=== PATIENT | male | born 1990 | race Caucasian/White ===

== ENCOUNTER 2018-01-08 03:36 | Emergency (ER) | payer OTHER ==
[2018-01-08 03:42] VITALS: BP 128/74; PULSE 68; RESP 16; TEMP 98.1
[2018-01-08] MEDS ORDERED: diphenhydrAMINE 50 MG/ML 1 ML VIAL IM STA (03:51)
[2018-01-08] MEDS ORDERED: FAMOTIDINE 20 MG TAB PO STA (03:52)
[2018-01-08] MEDS ORDERED: methylPREDNISolone SOD SUCCI 125 MG/2 ML VIAL IM ONE (03:52)
--- NOTE | 2018-01-08 03:56 | ED ---
General Adult HPI - General Chief complaint: Allergic Reaction Stated complaint: allergic rxn Time Seen by Provider: 01/08/18 03:40 Source: patient, RN notes reviewed Mode of arrival: ambulatory Limitations: no limitations - History of Present Illness Initial comments: This a 27-year-old male who presents emergency Department thinking that he has an ALLERGIC reaction. Patient states she woke up with itching around his neck arms and hands. Patient states he also has some swelling to his upper lip. Patient took Benadryl at home decreased the itching but he continues to have some redness. Patient denies any difficulty breathing or difficulty swallowing. Patient denies any new foods or drink. Patient denies any new soaps or detergents. Patient states she does smoke marijuana daily for his back pain. - Related Data Previous Rx's Medication Instructions Recorded predniSONE 40 mg PO DAILY #8 tab 01/08/18 Allergies Allergy/AdvReac Type Severity Reaction Status Date / Time No Known Allergies Allergy Verified 01/08/18 03:42 Review of Systems ROS Statement: Those systems with pertinent positive or pertinent negative responses have been documented in the HPI. ROS Other: All systems not noted in ROS Statement are negative. Past Medical History Past Medical History: No Reported History History of Any Multi-Drug Resistant Organisms: None Reported Past Surgical History: No Surgical Hx Reported Past Psychological History: Anxiety Smoking Status: Never smoker Past Alcohol Use History: Occasional Past Drug Use History: Marijuana General Exam - General Exam Comments Initial Comments: GENERAL: Patient is well-developed and well-nourished. Patient is nontoxic and well- hydrated and is in mild distress. EYES: The sclera were anicteric and conjunctiva were pink and moist. Extraocular movements were intact and pupils were equal round and reactive to light. Eyelids were unremarkable. PULMONARY: Unlabored respirations. Good breath sounds bilaterally. No audible rales rhonchi or wheezing was noted. CARDIOVASCULAR: There is a regular rate and rhythm without any murmurs gallops or rubs. SKIN: Patient's skin is erythematous on the forearms hands around the neck. NEUROLOGIC: Patient is alert and oriented x3. Cranial nerves II through XII are grossly intact. Motor and sensory are also intact. Normal speech, volume and content. Symmetrical smile. MUSCULOSKELETAL: Normal extremities with adequate strength and full range of motion. PSYCHIATRIC: Normal psychiatric evaluation. Normal interpersonal interactions appears functionally intact in deals appropriately with others. No signs of depression. No signs of anxiety. Limitations: no limitations Course Vital Signs 01/08/18 03:37 Temperature 98.1 F Pulse Rate 68 Respiratory 16 Rate Blood Pressure 128/74 O2 Sat by Pulse 98 Oximetry Disposition Clinical Impression: Allergic reaction Disposition: HOME SELF-CARE Condition: Good Instructions: Allergies (ED) Prescriptions: predniSONE 40 mg PO DAILY #8 tab Is patient prescribed a controlled substance at d/c from ED?: No Referrals: None,Stated [Primary Care Provider] - 1-2 days Time of Disposition: 03:55
== END 2018-01-08 04:21 | disposition home or self-care (01) ==
LOC: EC 03:36
DX: T78.40XA Allergy, unspecified, initial encounter (principal)
CPT/HCPCS: 99283; 96372 ×2; J1200; J2930